=== PATIENT | male | born 1990 | race African-American/Black ===

== ENCOUNTER 2022-03-29 17:02 | Emergency (ER) | payer OTHER ==
[~2022-03-29] VITALS: Ht 167.6 cm; Wt 81.8 kg
[2022-03-29] MEDS ORDERED: KETOROLAC TROMETHAMINE 10 MG TAB PO ONE (22:30)
[2022-03-29 22:34] VITALS: BP 131/85
== END 2022-03-29 22:46 | disposition home or self-care (01) ==
LOC: M ED 17:02
DX: S62.524A Nondisplaced fracture of distal phalanx of right thumb, initial encounter for closed fracture (principal); W23.0XXA Caught, crushed, jammed, or pinched between moving objects, initial encounter; Y99.0 Civilian activity done for income or pay; Z88.1 Allergy status to other antibiotic agents; Z88.2 Allergy status to sulfonamides

== ENCOUNTER → 2022-04-25 | Outpatient (CLI) | payer OTHER | LOC: M SOG 14:06 | PROVIDERS: ATTEND Orthopaedic Surgery | DX: S62.524A Nondisplaced fracture of distal phalanx of right thumb, initial encounter for closed fracture (principal) ==

== ENCOUNTER 2022-06-11 22:29 | Emergency (ER) | payer OTHER ==
[~2022-06-11] VITALS: Ht 167.6 cm; Wt 81.8 kg
[2022-06-11 22:29] VITALS: BP 134/86
[2022-06-12] MEDS ORDERED: NEOSPORIN OINT 0.9 GM PKT TOP ONE (01:35)
[2022-06-12] MEDS ORDERED: LIDOCAINE 1% MDV 20ML VIAL SC ONE (01:35)
== END 2022-06-12 02:25 | disposition home or self-care (01) ==
LOC: M ED 22:29
DX: S01.511A Laceration without foreign body of lip, initial encounter (principal); W22.8XXA Striking against or struck by other objects, initial encounter; Y99.0 Civilian activity done for income or pay; Z88.2 Allergy status to sulfonamides